=== PATIENT | male | born 1965 | race Two or more races ===

== ENCOUNTER 2020-01-31 09:21 | Observation (INO) | payer BC ==
[~2020-01-31] VITALS: Ht 180.3 cm; Wt 83.0 kg
[2020-01-31] VITALS (12 sets, daily range): BP systolic 102–118; BP diastolic 64–81
[2020-01-31] MEDS ORDERED: LIDOCAINE 1% PF 2 ML VIAL. ONE (09:29)
[2020-01-31] MEDS ORDERED: IODIXANOL 320 MG/ML 100 ML VIAL. ONE (09:29)
[2020-01-31 09:47] LABS: BASO # 0.1 x10^3/uL (0.0-0.2); BASO % 1 % (0-3); EOS # 0.1 x10^3/uL (0.0-0.7); EOS % 1 % (0-3); HEMATOCRIT 41.5 % (39.0-53.0); HEMOGLOBIN 13.9 g/dL (13.0-17.5); LYMPH # 1.9 x10^3/uL (1.0-4.8); LYMPH % 22 % (24-48); MEAN CORPUSCULAR HEMOGLOBIN 28 pg (25-35); MEAN CORPUSCULAR HGB CONC 34 g/dL (31-37); MEAN CORPUSCULAR VOLUME 83 fL (79-100); MONO # 0.6 x10^3/uL (0.0-1.1); MONO % 7 % (0-9); NEUT % 69 % (31-73); PLATELET COUNT 232 x10^3/uL (140-400); RED BLOOD COUNT 5.01 x10^6/uL (4.30-5.70); RED CELL DISTRIBUTION WIDTH 13.3 % (11.5-14.5); WHITE BLOOD COUNT 8.7 x10^3/uL (4.0-11.0)
[2020-01-31 09:56] LABS: CALCIUM 8.7 mg/dL (8.5-10.1); CREATININE 1.3 mg/dL (0.7-1.3); GFR 57.7
[2020-01-31 10:02] LABS: ALBUMIN 3.9 g/dL (3.4-5.0); ALBUMIN/GLOBULIN RATIO 1.2 (1.0-1.7); TOTAL BILIRUBIN 0.4 mg/dL (0.2-1.0); TOTAL PROTEIN 7.2 g/dL (6.4-8.2)
[2020-01-31] MEDS ORDERED: NITROGLYCERIN 200 MCG/2 ML SYRINGE FOR CATH/VASC LAB. ONE ×2 (10:53→10:54)
[2020-01-31] MEDS ORDERED: fentaNYL PF VIAL 100 MCG/2 ML VIAL ONE (10:53)
[2020-01-31] MEDS ORDERED: VERAPAMIL 5 MG/2 ML VIAL. ONE (10:53)
[2020-01-31] MEDS ORDERED: HEPARIN for IV BOLUS 10,000 UNIT/10 ML VIAL. ONE (10:53)
[2020-01-31] MEDS ORDERED: MIDAZOLAM HCL/PF 2 MG/2 ML VIAL. ONE (10:53)
[2020-01-31] MEDS ORDERED: LIDOCAINE 1% PF 2 ML VIAL. INJ ONE (11:30)
[2020-01-31] MEDS ORDERED: fentaNYL PF VIAL 100 MCG/2 ML VIAL IV ONE (11:30)
[2020-01-31] MEDS ORDERED: HEPARIN for IV BOLUS 10,000 UNIT/10 ML VIAL. IART ONE (11:30)
[2020-01-31] MEDS ORDERED: NITROGLYCERIN 200 MCG/2 ML SYRINGE FOR CATH/VASC LAB. IART ONE (11:30)
[2020-01-31] MEDS ORDERED: IODIXANOL 320 MG/ML 100 ML VIAL. IART ONE (11:30)
[2020-01-31] MEDS ORDERED: VERAPAMIL 5 MG/2 ML VIAL. IART ONE (11:30)
[2020-01-31] MEDS ORDERED: MIDAZOLAM HCL/PF 2 MG/2 ML VIAL. IV ONE (11:30)
--- NOTE | 2020-01-31 12:27 | PDOC1 ---
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 He also had mild associated shortness of breath but denied any orthopnea/PND, palpitations or syncope. He has strong family history of premature coronary disease. Past medical history Hypertension Hyperlipidemia Diabetes mellitus type 2 Social history Patient smokes cigarettes occasionally, admitted to social intake of alcohol but denied any drug abuse. Family history Patient has strong family history of premature coronary disease with several members in family having stents placement in 40s. Medications Metformin, simvastatin, irbesartan and sitagliptin Allergies None Review of systems 14 point review of systems was positive for chest pain associated with dyspnea and diaphoresis and negative for visual disturbances, orthopnea, nausea, vomiting, diarrhea, dysuria/hematuria, loss of function, seizures etc. Physical exam Blood pressure 134/81, pulse 78 bpm, respiratory rate 18/min, temperature 98.2 HEENT: unremarkable Lungs: clear to auscultation Heart: regular rate and rhythm no murmurs Abdomen: soft nontender Extremities: no edema Neuro: intact Laboratory studies Hemoglobin 13.9, hematocrit 41.5, WBC count 8.7, platelet count 232, sodium 140, potassium 4.0, BUN 14, creatinine 1.3, glucose 156, troponin less than 0.017 Assessment and plan 1. Chest pain with typical features very concerning for unstable angina. Troponin level normal. Patient has multiple cardiovascular risk factors including strong family history of premature coronary disease. We will proceed with cardiac catheterization and possible angioplasty. Risks and benefits were explained and he is agreeable. 2. Hypertension: Controlled 3. Hyperlipidemia: On statins 4. Diabetes mellitus type 2: Treat per PCP SHANE MALDONADO MD January 31, 2020 12:27
[2020-01-31] MEDS ORDERED: IV 1/2 NORMAL SALINE 1,000 ML IV SCH (12:28)
--- NOTE | 2020-01-31 12:28 | PDOC ---
MODERATE SEDATION ASSESSMENT RISKS/ALTERNATIVES Risks/Alternatives Risks and alternatives of this type of sedation and procedure discussed with: RISK/ALTERNATIVES: Patient H & P ON CHART H & P H & P on chart and reviewed for co-morbid conditions and appropriate labs. H&P ON CHART: Yes STATUS PREG STATUS ASSESSED: N/A MEDS/ALLERGIES REVIEWED Meds/Allergies Reviewed Medications and Allergies including time and route of recently administered narcotics and sedatives. MEDS/ALLERGIES REVIEWED: Yes ASA RATING ASA RATING: II AIRWAY ASSESSMENT Airway Assessment Airway patency, oral function limitations, presence of caps, crowns, dentures, partials, and ability to extend neck assessed. AIRWAY ASSESSMENT: Yes MALLAMPATI SCORE MALLAMPATI SCORE: II PRE-SEDATION ASSESSMENT PRE-SEDATION ASSESSMENT: Yes SHANE MALDONADO MD January 31, 2020 12:28
[2020-01-31] MEDS ORDERED: 0.9 % SODIUM CHLORIDE 10 ML DISP.SYRIN. IV PRN (12:30)
[2020-01-31] MEDS ORDERED: NITROGLYCERIN SUBLINGUAL 0.4 MG BOTTLE OF 25. SL PRN (12:30)
--- NOTE | 2020-01-31 12:34 | CARD ---
MR#: [id number] Date of Study: 01/31/2020 Ordering Physician: SHANE MALDONADO, Referring Physician: SHANE MALDONADO, Tech: HEDY MCKINNEY RTR APPROVED REPORT Technologist: HEDY MCKINNEY RTR Nurse: Nidhi Huertas R.N. Procedure(s) performed: Left heart catheterization, selective coronary angiography and left ventricul ography via right transradial approach MODERATE SEDATION TIME: 31 MINUETS FLUORO TIME: 8.0 MIN DOSE: 63.8 GYCM2 CONTRAST: 120CC VISI INDICATION The indication(s) include : unstable angina . CSHA Clinical Frailty Scale CSHA Clinical Frailty Scale: Well Heart Failure Heart Failure: No PROCEDURE NARRATIVE After explaining the risks, benefits and alternative options, informed consent was obtained from patrick ent. Patient was brought to the cardiac Rural Electrification Engineer and right wrist was prepped and draped in the usual fashion after confirming a positive modified Juliano's test. Arterial access was obtained in the rig t radial artery and a 6 [place] sheath was inserted. 6 [place] Aashish catheter was used to perform marck ective angiography of the right coronary artery. After initial unsuccessful attempts at engaging the left main coronary artery using 6 [place] Manoj followed by 6 [place] JL 3.5 catheters, this was engag ed with 6 [place] AL 0.75 guide catheter and angiography was performed. 6 [place] pigtail catheter was used to perform left ventriculography. Patient tolerated the procedure well. Hemostasis was achiev ed using TR band. There were no immediate complications. The following findings were noted. FINDINGS 1. Hemodynamics: Left ventricular end-diastolic pressure of 12 mmHg. No pullback gradient across th e aortic valve. 2. Left ventriculography: Normal left ventricle systolic function with ejection fraction estimated at 60%. No significant mitral regurgitation seen. 3. Coronary angiography: a. The left main coronary artery arose from the left sinus of Valsalva, gave rise to the left anteri or descending and left circumflex arteries and did not show any significant stenosis. b. The left anterior descending artery did not show any significant stenosis. Of note, there was sl ightly sluggish flow in LAD probably from microvascular dysfunction secondary to his diabetes. c. The left circumflex artery did not show any significant stenosis. d. The right coronary artery was a large and dominant vessel arising from the right sinus of Valsalv a that did not show any significant stenosis. Conclusion 1. No significant coronary disease 2. Normal left ventricle systolic function with ejection fraction estimated at 60% Recommendations Cardiovascular risk factor modification Signed by : Shane Maldonado, Electronically Approved : 01/31/2020 12:34:09
--- NOTE | 2020-01-31 12:39 | EKG ---
[facility] [address] [place] [address] Test Date: 2020-01-31 Test Time: 09:27:30 Pat Name: TRELL DUFFY Department: Room: 209 1 Gender: M [employer] Agent: : 1965 Requested By: SHANE ALICIA Order Number: [id number] Reading MD: Shane Alicia Measurements Intervals [place] Rate: 81 P: 31 [place]: 174 QRS: 19 QRSD: 76 T: 22 QT: 348 QTc: 409 Interpretive Statements SINUS RHYTHM QRS(T) CONTOUR ABNORMALITY CONSISTENT WITH ANTEROSEPTAL INFARCT PROBABLY OLD ABNORMAL ECG RI6.01 No previous ECG available for comparison Electronically Signed On 02-01-2020 8:41:22 CDT by Shane Alicia
[2020-01-31] MEDS ORDERED: METF750T39 PO (13:14)
[2020-01-31] MEDS ORDERED: SIMV20TA PO (13:14)
[2020-01-31] MEDS ORDERED: IRBE150T21 PO (13:14)
[2020-01-31] MEDS ORDERED: SITA100T PO (13:14)
--- NOTE | 2020-01-31 15:03 | PDOC3 ---
Discharge Summary Visit Information Date of Admission: January 31, 2020 Date of Discharge: January 31, 2020 Admitting Diagnosis: Unstable angina Final Diagnosis Chest pain Hypertension Hyperlipidemia Diabetes mellitus type 2 Brief Hospital Course Allergies Allergies Coded Allergies Type Severity Reaction Last Updated Verified No Known Drug Allergies 01/31/20 No Vital Signs Vital Signs Date Time Temp Pulse Resp B/P (MAP) Pulse Ox O2 Delivery O2 Flow Rate FiO2 01/31/20 14:27 98.1 75 18 118/81 (93) 98 Room Air 98.1 01/31/20 11:43 2.0 Lab Results Laboratory Tests Test 01/31/20 09:30 White Blood Count 8.7 x10^3/uL (4.0-11.0) Red Blood Count 5.01 x10^6/uL (4.30-5.70) Hemoglobin 13.9 g/dL (13.0-17.5) Hematocrit 41.5 % (39.0-53.0) Mean Corpuscular Volume 83 fL (79-100) Mean Corpuscular Hemoglobin 28 pg (25-35) Mean Corpuscular Hemoglobin Concent 34 g/dL (31-37) Red Cell Distribution Width 13.3 % (11.5-14.5) Platelet Count 232 x10^3/uL (140-400) Neutrophils (%) (Auto) 69 % (31-73) Lymphocytes (%) (Auto) 22 % (24-48) Monocytes (%) (Auto) 7 % (0-9) Eosinophils (%) (Auto) 1 % (0-3) Basophils (%) (Auto) 1 % (0-3) Neutrophils # (Auto) 6.0 x10^3/uL (1.8-7.7) Lymphocytes # (Auto) 1.9 x10^3/uL (1.0-4.8) Monocytes # (Auto) 0.6 x10^3/uL (0.0-1.1) Eosinophils # (Auto) 0.1 x10^3/uL (0.0-0.7) Basophils # (Auto) 0.1 x10^3/uL (0.0-0.2) Sodium Level 140 mmol/L (136-145) Potassium Level 4.0 mmol/L (3.5-5.1) Chloride Level 102 mmol/L (98-107) Carbon Dioxide Level 25 mmol/L (21-32) Anion Gap 13 (6-14) Blood Urea Nitrogen 14 mg/dL (8-26) Creatinine 1.3 mg/dL (0.7-1.3) Estimated GFR (Cockcroft-Gault) 57.7 BUN/Creatinine Ratio 11 (6-20) Glucose Level 156 mg/dL (70-99) Calcium Level 8.7 mg/dL (8.5-10.1) Total Bilirubin 0.4 mg/dL (0.2-1.0) Aspartate Amino Transf (AST/SGOT) 22 U/L (15-37) Alanine Aminotransferase (ALT/SGPT) 40 U/L (16-63) Alkaline Phosphatase 66 U/L (46-116) Troponin I Quantitative < 0.017 ng/mL (0.000-0.055) DP-Xvs-R-Type Natriuretic Peptide 14 pg/mL (0-124) Total Protein 7.2 g/dL (6.4-8.2) Albumin 3.9 g/dL (3.4-5.0) Albumin/Globulin Ratio 1.2 (1.0-1.7) Laboratory Tests Test 01/31/20 09:30 White Blood Count 8.7 x10^3/uL (4.0-11.0) Red Blood Count 5.01 x10^6/uL (4.30-5.70) Hemoglobin 13.9 g/dL (13.0-17.5) Hematocrit 41.5 % (39.0-53.0) Mean Corpuscular Volume 83 fL (79-100) Mean Corpuscular Hemoglobin 28 pg (25-35) Mean Corpuscular Hemoglobin Concent 34 g/dL (31-37) Red Cell Distribution Width 13.3 % (11.5-14.5) Platelet Count 232 x10^3/uL (140-400) Neutrophils (%) (Auto) 69 % (31-73) Lymphocytes (%) (Auto) 22 % (24-48) Monocytes (%) (Auto) 7 % (0-9) Eosinophils (%) (Auto) 1 % (0-3) Basophils (%) (Auto) 1 % (0-3) Neutrophils # (Auto) 6.0 x10^3/uL (1.8-7.7) Lymphocytes # (Auto) 1.9 x10^3/uL (1.0-4.8) Monocytes # (Auto) 0.6 x10^3/uL (0.0-1.1) Eosinophils # (Auto) 0.1 x10^3/uL (0.0-0.7) Basophils # (Auto) 0.1 x10^3/uL (0.0-0.2) Sodium Level 140 mmol/L (136-145) Potassium Level 4.0 mmol/L (3.5-5.1) Chloride Level 102 mmol/L (98-107) Carbon Dioxide Level 25 mmol/L (21-32) Anion Gap 13 (6-14) Blood Urea Nitrogen 14 mg/dL (8-26) Creatinine 1.3 mg/dL (0.7-1.3) Estimated GFR (Cockcroft-Gault) 57.7 BUN/Creatinine Ratio 11 (6-20) Glucose Level 156 mg/dL (70-99) Calcium Level 8.7 mg/dL (8.5-10.1) Total Bilirubin 0.4 mg/dL (0.2-1.0) Aspartate Amino Transf (AST/SGOT) 22 U/L (15-37) Alanine Aminotransferase (ALT/SGPT) 40 U/L (16-63) Alkaline Phosphatase 66 U/L (46-116) Troponin I Quantitative < 0.017 ng/mL (0.000-0.055) PB-Sol-Z-Type Natriuretic Peptide 14 pg/mL (0-124) Total Protein 7.2 g/dL (6.4-8.2) Albumin 3.9 g/dL (3.4-5.0) Albumin/Globulin Ratio 1.2 (1.0-1.7) Brief Hospital Course Mr. Linares is a 54 old pleasant male with multiple cardiovascular risk f actors presented with chest pain with typical features very concerning for unstable angina. He underwent cardiac catheterization that did not show any significant coronary disease. Chest pain could have been from esophageal spasm since he has a known history of gastroesophageal reflux disease. He was advised to take proton pump inhibitors. He remained hemodynamically stable and symptom- free prior to discharge. Discharge Information Condition at Discharge: Stable Disposition/Orders: D/C to Home Scheduled Irbesartan (Irbesartan) 150 Mg Tablet, 150 MG PO DAILY for , (Reported) Entered as Reported by: CARMINA CHAIDEZ RN on 01/31/201313 Last Action: New Order on 01/31/201313 by CARMINA CHAIDEZ RN Metformin Hcl (Metformin Hcl Er) 750 Mg Tab.er.24h, 1 TAB PO BID for for 30 Days, #60 Ref 0 (Reported) Entered as Reported by: CARMINA CHAIDEZ RN on 01/31/201313 Last Action: New Order on 01/31/201313 by CARMINA CHAIDEZ RN Simvastatin (Zocor) 20 Mg Tablet, 1 TAB PO HS for , #90 Ref 1 (Reported) Entered as Reported by: CARMINA CHAIDEZ RN on 01/31/201313 Last Action: New Order on 01/31/201313 by CARMINA CHAIDEZ RN Sitagliptin Phosphate (Januvia) 100 Mg Tablet, 1 TAB PO DAILY for , #30 Ref 5 (Reported) Entered as Reported by: CARMINA CHAIDEZ RN on 01/31/201313 Last Action: New Order on 01/31/201313 by ROSE RENEE VENKAT R MD January 31, 2020 15:03
--- NOTE | 2020-01-31 15:30 | NUR ---
Discharge Note: NORA DUFFY Discharge instructions and discharge home medications reviewed with Patient and a copy given. All questions have been answered and understanding verbalized. The following instructions and handouts were given: Post cardiac catheterization discharge instructions. Discontinued lines and drains: Peripheral IV intact. Patient discharged to Home or Self Care with Self via Ambulated
== END 2020-01-31 15:30 | disposition home or self-care (01) ==
LOC: EDSEX 09:21 → ER 09:21 → 2 NORTH 09:30
PROVIDERS: ADMIT Family Medicine; ATTEND Family Medicine
DX: R07.89 Other chest pain (principal); I10 Essential (primary) hypertension; E11.9 Type 2 diabetes mellitus without complications; E78.5 Hyperlipidemia, unspecified; F17.210 Nicotine dependence, cigarettes, uncomplicated; Z79.84 Long term (current) use of oral hypoglycemic drugs
CPT/HCPCS: 36415; 80053; 83880; 84484; 85025; 93005; 93458; 96374; 96375; C1769; C1887; C1892; G0378; G0379; J1644; J2250; J3010; J3490; Q9967; 99152; 99153